=== PATIENT | female | born 1945 | race American Indian/Alaskan Native ===

== ENCOUNTER 2018-12-07 06:15 | Day surgery (SDC) | payer MEDICARE ==
[2018-12-07] MEDS ORDERED: WATER FOR IRRIG STERILE 250 ML BOTTLE IR ONE ×2 (07:20→07:21)
[2018-12-07] MEDS ORDERED: WATER FOR IRRIG STERILE 1,000 ML BOTTLE ONE (07:21)
[2018-12-07] MEDS ORDERED: SODIUM CHLORIDE 0.9% 1000 ML 1,000 ML ONE (07:35)
--- NOTE | 2018-12-07 07:48 | Anesthesia Consultation ---
Anesthesia Consult and Med Hx Date of service: 12/07/18 - Airway Anesthetic Teeth Evaluation: Good ROM Head & Neck: Adequate Mental/Hyoid Distance: Adequate Mallampati Class: Class II Intubation Access Assessment: Probably Good - Pre-Operative Health Status ASA Pre-Surgery Classification: ASA3 Proposed Anesthetic Plan: MAC - Pulmonary Hx Smoking: No Hx Asthma: No Hx Respiratory Symptoms: No SOB: No COPD: No Home Oxygen Therapy: No Hx Pneumonia: No Hx Sleep Apnea: Yes - Cardiovascular System Hx Hypertension: Yes Hx Coronary Artery Disease: No Hx Heart Attack/AMI: No Hx Angina: No Hx Percutaneous Transluminal Coronary Angioplasty (PTCA): No Hx Cardia Arrhythmia: No Hx Pacemaker: No Hx Internal Defibrillator: No Hx Valvular Heart Disease: No Hx Heart Murmur: No Hx Peripheral Vascular Disease: No - Central Nervous System Hx Neuromuscular Disorder: No Hx Seizures: No CVA: No Hx Back Pain: Yes (sciatica) Hx Psychiatric Problems: No - Gastrointestinal Hx Ulcer: No Hx Gastroesophageal Reflux Disease: Yes - Endocrine Hx Renal Disease: No Hx End Stage Renal Disease: No Hx Cirrhosis: No Hx Liver Disease: No Hx Insulin Dependent Diabetes: No Hx Non-Insulin Dependent Diabetes: No Hx Thyroid Disease: No Hx Hypothyroidism: No Hx Hyperthyroidism: No - Hematic Hx Anemia: No Hx Sickle Cell Disease: No - Other Systems Hx Alcohol Use: No Hx Substance Use: No Hx Cancer: No Hx Obesity: Yes
--- NOTE | 2018-12-07 07:52 | Anesthesia Day of Surgery ---
Anesthesia Day of Surgery - Day of Surgery Patient Examined: Yes Patient H&P Reviewed: Yes Patient is NPO: Yes Beta Blockers: No
[2018-12-07] MEDS ORDERED: LIDOCAINE MPF (2%) 20 MG/1 ML VIAL 5 ML ONE (08:00)
[2018-12-07] MEDS ORDERED: SODIUM CHLORIDE 0.9% 1000 ML 1,000 ML IV SCH (09:00)
[2018-12-07] MEDS ORDERED: PROPOFOL 200 MG/20 ML VIAL IV ONE ×2 (09:33)
--- NOTE | 2018-12-07 10:14 | Procedure Note ---
Date of procedure: 12/07/18 Pre-op diagnosis: GERD/H/O Melena/Colon Polyp Screening Post-op diagnosis: other (Moderate,Erosive Esophagitis/ Moderate,Hiatal Hernia/Gastric Erosion (proximal stomach)/Gastritis/ Extensive and Deep Diverticular Disease (most pronounced in the left colon,but present throughout the colon)/ Minor,Internal Hemorrhoid) Procedure: EGd with Biopsy and Colonoscopy Anest[place]: [facility] [place] Surgeon: DAPHNE KEARNEY Estimated blood loss: minimal Pathology: list Specimen disposition: to lab Condition: stable Disposition: same day (Treat with PPI and enocurage fiber intake. Hold aspirin and NSAID and anticoagulants for 4 days, otherwise resume home medication. Follow up in 1 to 2 weeks ([phone]).)
[2018-12-07 10:40] VITALS: BP 135/66
--- NOTE | 2018-12-07 12:58 | Operative Report ---
PROCEDURE: Esophagogastroduodenoscopy with biopsy. INDICATIONS: This is a 73-year-old -[place] female who had stated that she was having some melena. EGD was done to assess for any significant upper GI pathology. She also gives history of GERD symptoms. DESCRIPTION OF PROCEDURE: EGD was done after getting informed consent with MAC anesthesia. Instrument was passed through the hypopharynx into the esophagus, which showed moderate erosive esophagitis and a moderate hiatal hernia. There was gastritis noted and most pronounced in the proximal stomach. The pylorus was patent. The duodenum in the first and the second portion appeared normal. There was no evidence of any active bleeding or old blood within the gastric or the duodenal lumen. Biopsy was done from the gastric antrum, gastric body and angular incisura to rule out for H. pylori and atrophic gastritis. Additional biopsy was done from the distal esophagus to assess for the severity of the erosive esophagitis. There was minimal bleeding associated with the procedure. No complications associated with the procedure. ASSESSMENT: History of melena. No active upper gastrointestinal bleeding noted, gastroesophageal reflux disease symptoms, moderate erosive esophagitis, gastritis, most pronounced in the proximal stomach and moderate hiatal hernia. No peptic ulcer disease noted. PLAN: Treat the patient with PPI, have the patient avoid aspirin and aspirin-related products for the next few days to do a colonoscopy as part of colon polyp screening. The patient will be asked to follow up in the office in 1-2 weeks' time. The procedure was done in the GI lab with assistance of the GI lab team, which included Kamala OCHOA as well as Ruslan quarles and with the assistance of Anesthesia. [facility]# [id number] LUZ MARIA/IRIS
--- NOTE | 2018-12-07 13:01 | Operative Report ---
PROCEDURE: Colonoscopy. INDICATIONS: A 73-year-old -Citizen Of [place] female who had EGD done prior to the colonoscopy, which showed presence of a moderate hiatal hernia, moderate erosive esophagitis and gastritis, but no evidence of any active upper GI bleeding. Colonoscopy was done as part of colon polyp screening. DESCRIPTION OF PROCEDURE: Procedure was done after getting informed consent with MAC anesthesia. Initial rectal exam was unremarkable. Instrument was passed through the rectum onto the cecum, which was identified with ileocecal valve and the appendiceal orifice. Visualization was fair to good. There were scattered diverticula noted in the proximal as well as in the transverse colon and moderately severe and deep diverticular disease noted in the left colon. There was no evidence of any polyps or colitis and the rectum showed minor internal hemorrhoid on the retroverted view. Visualization was fair to good. There is no bleeding associated with the colonoscopy. No biopsies associated with the colonoscopy. ASSESSMENT: Colon polyp screening, no colon polyps noted. Moderately severe extensive diverticular disease, minor internal hemorrhoids. The patient will be asked to resume home medications, but avoid aspirin and aspirin-related products for the next few days since the patient had an EGD done with biopsies. Encouraged to take fiber supplements and follow up in the office in 1-2 weeks' time. The procedure was done in the GI lab with assistance of the GI lab team, which included RN, Kamala Ontiveros; Ruslan quarles and with assistance of Anesthesia. JOB# [id number] LUZ MARIA/IRIS
== END 2018-12-07 10:51 | disposition home or self-care (01) ==
LOC: GIO 06:15
DX: K92.1 Melena (principal); K21.0 Gastro-esophageal reflux disease with esophagitis; K57.30 Diverticulosis of large intestine without perforation or abscess without bleeding; K29.50 Unspecified chronic gastritis without bleeding; K64.8 Other hemorrhoids; K44.9 Diaphragmatic hernia without obstruction or gangrene; K31.89 Other diseases of stomach and duodenum; I10 Essential (primary) hypertension; E66.9 Obesity, unspecified; Z86.010 Personal history of colon polyps; Z88.6 Allergy status to analgesic agent; Z91.040 Latex allergy status; Z88.0 Allergy status to penicillin; Z79.899 Other long term (current) drug therapy; Z68.36 Body mass index [BMI] 36.0-36.9, adult; Z90.710 Acquired absence of both cervix and uterus; Z98.890 Other specified postprocedural states
CPT/HCPCS: 88305; 88312; 88342; J2704; J7030